=== PATIENT | female | born 1960 | race Caucasian/White ===

== ENCOUNTER 2023-11-26 11:08 | Outpatient (CLI) | payer OTHER, SELFPAY ==
--- NOTE | 2023-11-26 11:14 | MM_ITS ---
WS: [email or web address] BILATERAL 3D TOMOSYNTHESIS DIGITAL SCREENING MAMMOGRAPHY WITH CAD CLINICAL INFORMATION: SCREENING HISTORY: Screening mammogram. No current complaints. COMPARISON: 2018 TECHNIQUE: Bilateral CC and MLO views. FINDINGS: The breasts are composed of heterogeneous fibroglandular density tissue, which can limit the detectio n of small underlying mass lesions. Focal asymmetric density central RIGHT breast anteriorly along th e posterior nipple line measuring 8 mm appears new from previous. Recommend RIGHT breast diagnostic m ammography and ultrasound if persistent. Unremarkable LEFT breast. MM/[place] [id number] IMPRESSION: BI-RADS: 0-Incomplete: Need additional imaging evaluation FOLLOW UP: Need Additional Imaging Recommend RIGHT breast diagnostic mammography and ultrasound if persistent
== END 2023-11-26 11:09 | disposition home or self-care (01) ==
PROVIDERS: Family Provider Nurse Practitioner; Visit Provider Electrodiagnostic Medicine
DX: Z12.31 Encounter for screening mammogram for malignant neoplasm of breast (principal); R92.333 Mammographic heterogeneous density, bilateral breasts; R92.323 Mammographic fibroglandular density, bilateral breasts
CPT/HCPCS: 77063; 77067

== ENCOUNTER 2023-12-29 13:53 | Outpatient (CLI) | payer OTHER, SELFPAY ==
--- NOTE | 2023-12-29 13:57 | US_ITS ---
WS: [email or web address] Exam: US breast RT limited* [id number] Date/Time of Exam: 12/29/2023 3:10 PM Reason For Exam: R BREAST MASS The retroareolar area of the RIGHT breast is targeted for ultrasound evaluation. At the 3 o'clock pos ition in the retroareolar area there is a 0.4 x 0.4 x 0.5 cm irregular hypoechoic solid nodule that i s suspicious for malignancy. Biopsy would be indicated for further work-up. This could be performed w [facility] ultrasound-guided needle biopsy. No other significant finding in this region. US/US breast RT limited* [id number] IMPRESSION: 1. Suspicious 0.5 cm irregular hypoechoic nodule in the subareolar area of the RIGHT breast at about 3:00. Biopsy would be indicated. BI-RADS Category 4. Biopsy would be recommended.
--- NOTE | 2023-12-29 13:57 | MM_ITS ---
WS: [email or web address] VIEWS: MLO, CC, and ML views RIGHT breast . 3D digital tomosynthesis is also included in this exam. Compared to screening mammogram 11/26/2023. Findings: A persistent partially obscured 8 mm nodule again noted in the anterior RIGHT breast near the nipple line. The RIGHT breast is heterogeneously dense which may obscure small masses. Regional ultrasound o f the anterior RIGHT breast is indicated for further work-up. MM/[place] [id number] Impression: BI-RADS: 0-Incomplete: Need additional imaging evaluation FOLLOW-UP: See Report This mammogram was also analyzed by the Computer [employer].
== END 2023-12-29 13:54 | disposition home or self-care (01) ==
LOC: RAD 13:53
PROVIDERS: Family Provider Nurse Practitioner; Visit Provider Electrodiagnostic Medicine
DX: R92.8 Other abnormal and inconclusive findings on diagnostic imaging of breast (principal); R92.333 Mammographic heterogeneous density, bilateral breasts; N63.12 Unspecified lump in the right breast, upper inner quadrant
CPT/HCPCS: 76642; 77061; G0279

== ENCOUNTER 2024-01-21 12:48 | Outpatient (CLI) | payer OTHER, SELFPAY ==
--- NOTE | 2024-01-21 12:55 | US_ITS ---
WS: [id number] ULTRASOUND-GUIDED RIGHT BREAST BIOPSY CLINICAL INFORMATION: R BREAST LESION @ 3 OCLOCK FINDINGS: The procedure including risks, benefits, and complications were discussed with the patient who agreed to proceed. Using sterile technique patient was prepped and draped in the usual sterile fashion. Aft er 1% lidocaine utilizing real-time ultrasound guidance 5 14-gauge cores were obtained of the RIGHT b reast lesion at the 3:00 o'clock position retroareolar. Subsequently a titanium clip was placed in th e biopsy cavity. No immediate complications. Pathology demonstrates Benign breast tissue with fibrocystic changes. 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 Uncomplicated ultrasound-guided RIGHT breast biopsy. 2. The pathology demonstrates 3. Benign breast tissue with fibrocystic changes. 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 Recommend return to annual screening mammography. DENSITY: The breasts are heterogeneously dense, which may obscure small masses. BI-RADS: 2 - Benign FOLLOW UP: 1 Year Follow-up Recommend return to annual screening mammography.
== END 2024-01-21 12:49 | disposition home or self-care (01) ==
PROVIDERS: Family Provider Nurse Practitioner; Visit Provider Electrodiagnostic Medicine
DX: N63.14 Unspecified lump in the right breast, lower inner quadrant (principal); N60.31 Fibrosclerosis of right breast
CPT/HCPCS: 19083; 88305